=== PATIENT | female | born 1990 | race Caucasian/White ===

== ENCOUNTER 2018-12-04 12:52 | Observation (INO) ==
[2018-12-04 13:12] VITALS: BP 103/59
[2018-12-04] MEDS ORDERED: Ringers Solution, Lactated 1,000 ML ONE (13:13)
[2018-12-04] MEDS ORDERED: Ringers Solution, Lactated 1,000 ML IVC SCH (13:30)
--- NOTE | 2018-12-04 15:00 | Discharge Summary ---
Date of Encounter: 12/04/18 Time of Encounter: 14:58 - Discharge Diagnosis (1) 12 weeks gestation of Priority: Primary Status: Acute Comments: Admitted to observation for IV fluid hydration. Patient was sent from the office after her blood draw where she was dizzy and passed out. After a period of time she still did not feel better so she was sent to labor and delivery for hydration. (2) Dehydration during Priority: Secondary Status: Acute Comments: IV fluid hydration given. Patient states she is feeling better and not as dizzy. Was able to tolerate crackers. - Discharge Medications Home Medications: Pnv95/Ferrous Fumarate/FA [ Vitamin Tablet] 1 tab PO DAILY 12/04/18 [History] Allergies/Adverse Reactions: Allergy/AdvReac Type Severity Reaction Status Date / Time Penicillins [PCN] Allergy See Verified 12/04/18 13:13 Comments Date of admission: 12/04/18 13:18 Primary care physician: PCP NONE Discharging clinician: Joy Hernandez Anticipated date of discharge: 12/04/18 - Patient Status Disposition: Home, Self-Care Condition: Good Functional capacity at discharge: independent ambulation Overall status at discharge: patient is progressing back to baseline - Discharge Instructions Follow Up With: NONE,PCP [Primary Care Provider] - Additional Instructions: Follow-up appointments: If there is not an appointment listed below, please call your physician and schedule a follow-up appointment. If you have congestive heart failure and your symptoms return, make an appointment with your physician. Medication List: Carry an up to date list of medications you are taking at all time. We have given you an updated medication list including any new medications that you have been prescribed. Please provide that list to your primary provider Symptoms: If your condition changes or you experience any of the following symptoms, notify your physician immediately: Unusual or worsening pain, fever, persistent nausea and vomiting, bleeding, increase in swelling (especially in your legs), sudden weight gain, extreme dizziness, chest pain, increased drainage or redness from a wound or incision. Go to the emergency department if you experience a problem with breathing. Weights: If you have a history of swelling or shortness of breath, weigh yourself daily and notify your physician if you have a weight gain of two or more pounds in one day or 5 or more pounds in a week. If you experience any of the warning signs for stroke: Sudden numbness or weakness of the face, arm or leg; especially on one side of the body, sudden confusion, trouble speaking or understanding, sudden trouble seeing in one or both eyes, sudden trouble walking, dizziness, loss of balance or coordination, sudden sever headache with no cause; Call 911 or go to the emergency room. Stroke is a medical emergency. Some risk factors for stroke: Age, cigarette smoking, diabetes, excessive alcohol consumption, family history, high blood pressure, overweight, physical inactivity, prior stroke, heart attack , diagnosis of carotid artery stenosis or other artery disease. If you smoke, STOP: Smoking or tobacco use significantly increases your risk of heart and lung disease. Your chance of disease greatly increases if you continue to smoke. For more information, call the [employer] quit line for smoking cessation 6-359-ZWQG-NOW ( ) - Diet and Activity Activity: resume usual activities as tolerated Diet: regular diet Hospital Course [employer] Hospital course: Isabella was sent from the office today after her blood drawl for NT. After her blood was taken she did pass out and was kept at the office but did not recover as expected. Dr. Suresh felt she needed some IV hydration so she sent her over to labor and delivery to receive that. Patient was given 1 L of IV fluid bolus and states she feels better after that had infused. She reports a slight nausea but feels it is more related to the fact that she has not eaten. Patient was able to tolerate crackers prior to discharge. She has several family members at bedside for support and will return to office for routine visit. Time Attestation: Total time spent providing and/or coordinating discharge services: Time Spent: Less than 30 minutes Exam - Constitutional Vitals: Temp Pulse Resp BP 97.8 F 56 16 103/59 12/04/18 13:02 12/04/18 13:02 12/04/18 13:02 12/04/18 13:02 General appearance IM: A&O X 3, pleasant, no acute distress, answers questions appropriately - Neurological Exam Neurological exam: alert, normal gait, oriented X3 - VTE Reasons for not Prescribing Prophylaxis: Treatment not Indicated - Low risk for VTE
== END 2018-12-04 15:00 | disposition home or self-care (01) ==
LOC: INFINJ 12:52 → 1NENULAB 12:52
PROVIDERS: ADMIT Registered Nurse; ATTEND Registered Nurse

== ENCOUNTER → 2019-04-10 19:05 | Observation (INO) ==
[2019-04-10 18:42] LABS: Bilirubin,Urine Negative (Negative); Blood,Urine Trace (Negative); Clarity,Urine Clear (Clear); Color,Urine Yellow (Yellow); Glucose,Urine (UA) Normal (Normal); Ketones,Urine Negative (Negative); Leukocyte Esterase,Urine Trace (Negative); Nitrite,Urine Negative (Negative); Protein,Urine Negative (Neg-Trace); Specific Gravity,Urine 1.009 (1.010-1.025); Urobilinogen,Urine Normal (Normal)
[2019-04-10 18:44] LABS: Bacteria,Urine None Seen per hpf (None-Few); Hyaline Casts,Urine None Seen per lpf (None-Few); RBC,Urine 0-3 per hpf (0-3); Squamous Epithelial Cell,Urine Many per lpf (None-Few); WBC,Urine 0-3 per hpf (0-3)
[2019-04-10 18:50] LABS: Amphetamine Screen,Urine Negative ng/mL (Cutoff=1000); Barbiturate Screen,Urine Negative ng/mL (Cutoff=200); Benzodiazepines Screen,Urine Negative ng/mL (Cutoff=200); Cannabinoid Screen,Urine Negative ng/mL (Cutoff = 50); Cocaine Screen,Urine Negative ng/mL (Cutoff= 300); Opiate Screen,Urine Negative ng/mL (Cutoff=300); Phencyclidine Screen,Urine Negative ng/mL (Cutoff=25)
--- NOTE | 2019-04-10 18:54 | Discharge Summary ---
Date of Encounter: 04/10/19 Time of Encounter: 18:57 - Discharge Diagnosis (1) 30 weeks gestation of Priority: Primary Status: Acute Comments: Admit to observation for labor evaluation (2) NST (non-stress test) reactive Priority: Secondary Status: Acute Comments: FHR 140 bpm, moderate variability, +10x10 accels, no decels. (3) Abdominal pain affecting Priority: Secondary Status: Acute Comments: Admitted to observation for labor evaluation - Discharge Medications Prescriptions: No Action Pnv95/Ferrous Fumarate/FA [ Vitamin Tablet] 1 tab PO DAILY Home Medications: Pnv95/Ferrous Fumarate/FA [ Vitamin Tablet] 1 tab PO DAILY 12/04/18 [History] Allergies/Adverse Reactions: Allergy/AdvReac Type Severity Reaction Status Date / Time Penicillins [PCN] Allergy See Verified 12/04/18 13:13 Comments Data Procedures and tests throughout hospitalization: Laboratory Tests 04/10/19 04/10/19 17:25 17:25 Urine Color Yellow Urine Clarity Clear Urine pH 7.0 Ur Specific Bells 1.009 L Urine Protein Negative Urine Glucose (UA) Normal Urine Ketones Negative Urine Blood Trace H Urine Nitrite Negative Urine Bilirubin Negative Urine Urobilinogen Normal Ur Leukocyte Esterase Trace H Urine Microscopic RBC 0-3 Urine Microscopic WBC 0-3 Ur Squamous Epith Cells Many H Urine Bacteria None Seen Hyaline Casts None Seen Urine Opiates Screen Negative Ur Barbiturates Screen Negative Ur Phencyclidine Scrn Negative Ur Amphetamines Screen Negative U Benzodiazepines Scrn Negative Urine Cocaine Screen Negative U Marijuana (THC) Screen Negative Ur Drug Screen Interp See Below Labs on day of discharge: Labs from last 24 hours 04/10/19 04/10/19 17:25 17:25 Urine Color Yellow Urine Clarity Clear Urine pH 7.0 Ur Specific Bells 1.009 L Urine Protein Negative Urine Glucose (UA) Normal Urine Ketones Negative Urine Blood Trace H Urine Nitrite Negative Urine Bilirubin Negative Urine Urobilinogen Normal Ur Leukocyte Esterase Trace H Urine Microscopic RBC 0-3 Urine Microscopic WBC 0-3 Ur Squamous Epith Cells Many H Urine Bacteria None Seen Hyaline Casts None Seen Urine Opiates Screen Negative Ur Barbiturates Screen Negative Ur Phencyclidine Scrn Negative Ur Amphetamines Screen Negative U Benzodiazepines Scrn Negative Urine Cocaine Screen Negative U Marijuana (THC) Screen Negative Ur Drug Screen Interp See Below Date of admission: 04/10/19 17:21 Primary care physician: PCP NONE Discharging clinician: Joy Hernandez Anticipated date of discharge: 04/10/19 - Patient Status Disposition: Home, Self-Care Condition: Good Functional capacity at discharge: independent ambulation Overall status at discharge: patient is progressing back to baseline - Discharge Instructions Follow Up With: NONE,PCP [Primary Care Provider] - Additional Instructions: LABOR AND DELIVERY DISCHARGE INSTRUCTIONS Signs and Symptoms to be Reported to your Doctor Immediately: * Sudden gush, continuous or intermittent lead of fluid from vagina (note the time of gush and color of fluid) * Onset of bright red vaginal bleeding with or without pain (if you had a vaginal exam during this visit you may notice some dark red spotting. This is normal.) * Lower abdominal cramping or backache that is premenstrual-like feeling. * More than 6 contractions in one hour. * Burning during urination, having to urinate more frequently or pain in your mid-back. * A change in the baby's activity. This could be an increase or decrease in ac tivity. * Severe headache which does not go away with tylenol. * Sudden swelling in the face, hands, arms and/or legs. * Upper abdominal pain - sometimes associated with heartburn or nausea and is not relieved by Maalox, Mylanta or Tums. * Dizziness or blurred vision or visual disturbances (seeing stars/lights). * Kick Counts One hour after a meal, lay down on one side in a quiet place. Count the number of deandre the baby moves during an hour. If less than 6 movements, notify your physician. Diet: *Force fluids - 8-10 tall glasses of fluid per day. May include popsicles and jello. *Limit caffeine - this includes chocolate, coffee, tea, any soft drink containing such as all pao, Jack Yellow and Mountain Dew - Diet and Activity Activity: resume usual activities as tolerated Diet: regular diet Hospital Course [employer]NALYST Hospital course: Patient arrived with complaints of lower abdominal pain and cramping today. She is rested and hydrated and has not noticed a difference in her pain. She does report positive movement, denies vaginal bleeding, denies vaginal leakage. heart rate was reactive on monitor strip and no contractions were visualized. Cervix was examined due to patient complaint and found to be closed thick and high. Patient was given labor precautions. She is to follow- up with her OB care provider as scheduled and return for any further complaints. Time Attestation: Total time spent providing and/or coordinating discharge services: Time Spent: Less than 30 minutes Exam - Constitutional General appearance IM: A&O X 3, pleasant, no acute distress, answers questions appropriately - Respiratory Respiratory exam: Present: CTAB - Cardiovascular Cardiovascular exam IM: Present: RRR, +S1, +S2 - GI/Abdominal GI/Abdominal exam IM: normal bowel sounds, soft - Rectal Rectal exam: deferred - External exam: normal external exam - Extremities Exam Extremities exam IM: Present: full ROM, normal capillary refill, normal inspection - Neurological Exam Neurological exam: alert, normal gait, oriented X3 - VTE Reasons for not Prescribing Prophylaxis: Treatment not Indicated - Low risk for VTE
== END | disposition home or self-care (01) ==
LOC: 1NENULAB
PROVIDERS: ADMIT Obstetrics & Gynecology; ATTEND Obstetrics & Gynecology

== ENCOUNTER 2019-06-11 07:58 | Inpatient (IN) ==
[2019-06-11] MEDS ORDERED: Ondansetron 4 MG/2 ML VIAL IVP PRN (08:00)
[2019-06-11] MEDS ORDERED: Ringers Solution, Lactated 1,000 ML IVC SCH (08:00)
[2019-06-11] MEDS ORDERED: Oxytocin 20 units/ LR 1000 mL 20 UNIT/1,000 ML BAG IVC SCH ×2 (08:00→22:29)
[2019-06-11] MEDS ORDERED: *HR* Nalbuphine 10 MG/ML AMPUL IVP PRN (08:00)
[2019-06-11] MEDS ORDERED: Famotidine 20 MG/2 ML VIAL IVP PRN (08:00)
[2019-06-11] MEDS ORDERED: Metoclopramide 10 MG/2 ML VIAL IVP PRN (08:00)
[2019-06-11 08:28] LABS: Basophils # 0.1 K/mcL (0.0-0.2); Basophils % 0.4 %; Eosinophils # 0.1 K/mcL (0.0-0.6); Hematocrit 34.5 % (35.3-44.9); Hemoglobin 11.9 g/dL (11.5-15.4); Immature Granulocytes % 1.6 % (0-4); Lymphocytes # 2.4 K/mcL (0.6-4.6); Lymphocytes % 18.2 %; Mean Corpuscular HGB Conc 34.5 g/dL (31.6-35.5); Mean Corpuscular Hemoglobin 30.1 pg (28.0-33.3); Mean Corpuscular Volume 87.3 fL (83.0-100.0); Mean Platelet Volume 10.5 fL (9.4-12.4); Monocytes # 1.4 K/mcL (0.0-1.3); Monocytes % 10.4 %; Platelet Count 294 K/mcL (140-400); Red Blood Count 3.95 M/mcL (3.82-4.97); Red Cell Distribution Width 13.6 % (11.5-14.5); Segmented Neutrophils % 68.4 %; White Blood Count 13.2 K/mcL (4.3-11.1)
[2019-06-11] MEDS ORDERED: *HR* FentaNYL (PF) 100 MCG/2 ML VIAL EP ONE (10:28)
[2019-06-11] MEDS ORDERED: Bupivacaine-MPF 0.25% 10 ML VIAL EP ONE (10:28)
[2019-06-11] MEDS ORDERED: Epidural Premix (fent/bupiv) 110 ML EP SCH (10:30)
[2019-06-11] MEDS ORDERED: *HR* FentaNYL (PF) 100 MCG/2 ML VIAL ONE (10:33)
[2019-06-11] MEDS ORDERED: Bupivacaine-MPF 0.25% 10 ML VIAL ONE (10:33)
[2019-06-11] MEDS ORDERED: 0.9 % Sodium Chloride 1,000 ML ONE (15:57)
[2019-06-11] MEDS ORDERED: Ibuprofen 600 MG TABLET PO PRN (22:29)
[2019-06-11] MEDS ORDERED: Acetaminophen 325 MG TABLET PO PRN (22:29)
[2019-06-12 07:48] VITALS: BP 120/75
[2019-06-12] MEDS ORDERED: Prenatal Vit/FA 1 EACH TABLET PO SCH (09:00)
[2019-06-12] MEDS ORDERED: Loratadine 10 MG TABLET PO SCH (09:15)
== END 2019-06-12 22:00 | disposition home or self-care (01) | DRG 807 ==
LOC: 1NENULAB 07:58 → 1NENUOBS 23:02
PROVIDERS: ADMIT Obstetrics & Gynecology; ATTEND Obstetrics & Gynecology